=== PATIENT | male | born 1965 | race Hispanic/Latino ===

== ENCOUNTER 2017-09-21 12:10 | Emergency (ER) | payer SELFPAY ==
[2017-09-21] MEDS ORDERED: Dexamethasone 10 MG/ML VIAL ONE (13:27)
--- NOTE | 2017-09-21 14:12 | RAD ---
CHEST TWO VIEWS: HISTORY: Cough. COMPARISON: 03/11/2017 FINDINGS: Normal cardiac silhouette. Pulmonary vessels and pulmonary hilum are normal. Costophrenic angles a re clear. No consolidation or mass. No pneumothorax or osseous abnormalities. IMPRESSION: No acute cardiopulmonary process. POS: [facility]
== END 2017-09-21 15:04 | disposition home or self-care (01) ==
LOC: SCSER 12:10
DX: J20.9 Acute bronchitis, unspecified (principal); J01.90 Acute sinusitis, unspecified; I10 Essential (primary) hypertension; F17.220 Nicotine dependence, chewing tobacco, uncomplicated
CPT/HCPCS: 71020; 96372; J1100; J7620